=== PATIENT | female | born 1990 | race Caucasian/White ===

== ENCOUNTER → 2018-02-17 | Outpatient (CLI) | payer OTHER ==
[2018-02-17 17:28] LABS: HCG, SERUM QUANTITATIVE < 1.0 MIU/ML
== END ==
LOC: M WUC 16:02
DX: N91.2 Amenorrhea, unspecified (principal)
CPT/HCPCS: 84702

== ENCOUNTER → 2018-07-09 | Outpatient (CLI) | payer OTHER ==
[2018-07-09 18:02] LABS: TOTAL 25(OH) VITAMIN D 18.7 NG/ML (30.0-100.0)
[2018-07-09 18:06] LABS: ESTIMATED AVERAGE GLUCOSE 105 MG/DL (60-110); HEMOGLOBIN A1c 5.3 %
[2018-07-09 18:11] LABS: ALBUMIN 3.6 GM/DL (3.2-5.2); ALBUMIN/GLOBULIN RATIO 1.13 (1.00-1.93); ALKALINE PHOSPHATASE 51 U/L (45-117); ALT/SGPT 26 U/L (12-78); ANION GAP 8 MEQ/L (8-16); AST/SGOT 12 U/L (7-37); BILIRUBIN,TOTAL 0.2 MG/DL (0.2-1.0); BLOOD UREA NITROGEN 10 MG/DL (7-18); CALCIUM LEVEL 8.9 MG/DL (8.5-10.1); CARBON DIOXIDE LEVEL 26 MEQ/L (21-32); CHLORIDE LEVEL 107 MEQ/L (98-107); CHOLESTEROL LEVEL 237 MG/DL (<200); CHOLESTEROL RISK RATIO 5.386 (<5); CREATININE FOR GFR 0.83 MG/DL (0.55-1.30); GLOMERULAR FILTRATION RATE > 60.0 (>60); GLUCOSE, FASTING 101 MG/DL (70-100); HDL CHOLESTEROL 44 MG/DL (>40); LDL CHOLESTEROL 126.2 MG/DL (<100); NON-HDL-C 193 MG/DL; POTASSIUM SERUM 4.6 MEQ/L (3.5-5.1); SODIUM LEVEL 141 MEQ/L (136-145); TOTAL PROTEIN 6.8 GM/DL (6.4-8.2); TRIGLYCERIDES LEVEL 334 MG/DL (<150)
[2018-07-09 18:16] LABS: BASO % 0.6 % (0.0-1.0); EOS # 0.2 10^3/uL (0.0-0.50); HEMATOCRIT 42.4 % (36.0-47.0); HEMOGLOBIN 14.5 g/dl (12.0-15.5); IMMATURE GRANULOCYTE % 0.3 % (0-3.0); LYMPH # 2.2 10^3/uL (1.5-6.5); LYMPH % 33.6 % (24.0-44.0); MEAN CORPUSCULAR HEMOGLOBIN 31.7 pg (27.0-33.0); MEAN CORPUSCULAR HGB CONC 34.2 g/dl (32.0-36.5); MEAN CORPUSCULAR VOLUME 92.8 fl (80.0-96.0); MONO # 0.6 10^3/uL (0.0-0.8); MONO % 9.3 % (0.0-5.0); NEUTROPHILS # 3.4 10^3/uL (1.8-7.7); NEUTROPHILS % 53.2 % (36.0-66.0); PLATELET COUNT, AUTOMATED 385 10^3/uL (150-450); RED BLOOD COUNT 4.57 10^6/uL (4.00-5.40); WHITE BLOOD COUNT 6.4 10^3/uL (4.0-10.0)
[2018-07-13 14:12] LABS: INSULIN LEVEL 48.3 uIU/mL (2.6-24.9)
[2018-07-13 14:12] LABS: LAMOTRIGINE (LAMICTAL) None Detected ug/mL (2.0-20.0)
== END ==
LOC: M SMT 13:26
DX: F31.9 Bipolar disorder, unspecified (principal)
CPT/HCPCS: 83525

== ENCOUNTER 2018-10-24 23:48 | Emergency (ER) | payer MEDICAID, OTHER ==
[~2018-10-24] VITALS: Ht 172.7 cm; Wt 118.2 kg
[2018-10-24] MEDS ORDERED: SYNT125T PO (23:55)
[2018-10-24] MEDS ORDERED: D 50CAP PO (23:55)
[2018-10-24] MEDS ORDERED: LAMO25TA2 PO (23:55)
[2018-10-24] MEDS ORDERED: FLUO20TA28 PO (23:55)
[2018-10-24] MEDS ORDERED: PANT40TA3 PO (23:55)
[2018-10-25 00:58] LABS: BASO % 0.2 % (0.0-1.0); EOS # 0.2 10^3/uL (0.0-0.50); EOS % 2.5 % (0.0-3.0); HEMATOCRIT 40.7 % (36.0-47.0); HEMOGLOBIN 14.1 g/dl (12.0-15.5); LYMPH # 1.8 10^3/uL (1.5-6.5); LYMPH % 22.2 % (24.0-44.0); MEAN CORPUSCULAR HEMOGLOBIN 30.9 pg (27.0-33.0); MEAN CORPUSCULAR HGB CONC 34.6 g/dl (32.0-36.5); MEAN CORPUSCULAR VOLUME 89.3 fl (80.0-96.0); MONO # 0.8 10^3/uL (0.0-0.8); NEUTROPHILS # 5.3 10^3/uL (1.8-7.7); NEUTROPHILS % 64.6 % (36.0-66.0); PLATELET COUNT, AUTOMATED 348 10^3/uL (150-450); RED BLOOD COUNT 4.56 10^6/uL (4.00-5.40); WHITE BLOOD COUNT 8.2 10^3/uL (4.0-10.0)
[2018-10-25 01:11] LABS: ALBUMIN 3.7 GM/DL (3.2-5.2); ALT/SGPT 24 U/L (12-78); BILIRUBIN,TOTAL 0.4 MG/DL (0.2-1.0); BLOOD UREA NITROGEN 8 MG/DL (7-18); CALCIUM LEVEL 8.3 MG/DL (8.5-10.1); CARBON DIOXIDE LEVEL 30 MEQ/L (21-32); CHLORIDE LEVEL 103 MEQ/L (98-107); CREATININE FOR GFR 0.78 MG/DL (0.55-1.30); GLOMERULAR FILTRATION RATE > 60.0 (>60); GLUCOSE, FASTING 88 MG/DL (70-100); LIPASE 89 U/L (73-393); POTASSIUM SERUM 3.5 MEQ/L (3.5-5.1); SODIUM LEVEL 139 MEQ/L (136-145); TOTAL PROTEIN 7.2 GM/DL (6.4-8.2)
[2018-10-25] MEDS ORDERED: ONDANSETRON 4MG/2ML VIAL (J2405) IV ONE (01:15)
[2018-10-25] MEDS ORDERED: NS 1,000 ML IV ONE (01:15)
[2018-10-25] MEDS ORDERED: KETOROLAC 30 MG/ML VIAL (J1885) IV ONE (01:15)
[2018-10-25 01:27] LABS: APPEARANCE, URINE HAZY (CLEAR); BACTERIA, URINE AUTO NEGATIVE (NEGATIVE); BILIRUBIN, URINE AUTO NEGATIVE (NEGATIVE); BLOOD, URINE BLOOD 1+ (NEGATIVE); COLOR, URINE YELLOW (YELLOW); GLUCOSE, URINE (UA) AUTO NEGATIVE (NEGATIVE); KETONE, URINE AUTO NEGATIVE (NEGATIVE); LEUKOCYTE ESTERASE, URINE AUTO NEGATIVE (NEGATIVE); MUCUS, URINE SMALL (NEGATIVE); NITRITE, URINE AUTO NEGATIVE (NEGATIVE); PROTEIN, URINE AUTO NEGATIVE (NEGATIVE); RBC, URINE AUTO 11 /HPF (0-3); SPECIFIC GRAVITY URINE AUTO 1.024 (1.002-1.035); SQUAMOUS EPITHELIAL CELL UR AU 9 /HPF (0-6); UROBILINOGEN, URINE AUTO 0.2 mg/dL (0.0-2.0); WBC, URINE AUTO 2 /HPF (0-3)
[2018-10-25] MEDS ORDERED: CIPR-249 PO (02:34)
[2018-10-25] MEDS ORDERED: ZOFR4TAB14 PO (02:34)
[2018-10-25] MEDS ORDERED: DICY10CA13 PO (02:42)
[2018-10-25] MEDS ORDERED: CIPROFLOXACIN 500 MG TAB PO ONE (02:45)
[2018-10-25 03:00] VITALS: BP 128/74
== END 2018-10-25 03:02 | disposition home or self-care (01) ==
LOC: M ED 23:48
DX: R11.2 Nausea with vomiting, unspecified (principal); R19.5 Other fecal abnormalities; L40.9 Psoriasis, unspecified; F31.9 Bipolar disorder, unspecified; Z79.899 Other long term (current) drug therapy
CPT/HCPCS: 80053; 81001; 83690; 85025; 87507; 96374; 96375; 99284; J1885; J2405

== ENCOUNTER → 2019-01-07 | Outpatient (REF) | payer OTHER, SELFPAY ==
[~2019-01-07] MED LIST: CIPR-249 PO; D 50CAP PO; DICY10CA13 PO; FLUO20TA28 PO; LAMO25TA4 PO; PANT40TA3 PO; SYNT125T PO; ZOFR4TAB14 PO
[2019-01-07 10:49] LABS: BASO % 0.5 % (0.0-1.0); EOS # 0.2 10^3/uL (0.0-0.50); EOS % 2.9 % (0.0-3.0); HEMATOCRIT 42.7 % (36.0-47.0); HEMOGLOBIN 14.2 g/dl (12.0-15.5); LYMPH # 1.8 10^3/uL (1.5-6.5); LYMPH % 22.4 % (24.0-44.0); MEAN CORPUSCULAR HEMOGLOBIN 30.7 pg (27.0-33.0); MEAN CORPUSCULAR HGB CONC 33.3 g/dl (32.0-36.5); MEAN CORPUSCULAR VOLUME 92.4 fl (80.0-96.0); MONO % 12.8 % (0.0-5.0); NEUTROPHILS # 4.8 10^3/uL (1.8-7.7); PLATELET COUNT, AUTOMATED 326 10^3/uL (150-450); RED BLOOD COUNT 4.62 10^6/uL (4.00-5.40); WHITE BLOOD COUNT 7.8 10^3/uL (4.0-10.0)
[2019-01-07 11:24] LABS: HEMOGLOBIN A1c 5.4 %
[2019-01-07 11:32] LABS: ALBUMIN 3.6 GM/DL (3.2-5.2); ALT/SGPT 22 U/L (12-78); BILIRUBIN,TOTAL 0.2 MG/DL (0.2-1.0); BLOOD UREA NITROGEN 10 MG/DL (7-18); CALCIUM LEVEL 8.4 MG/DL (8.5-10.1); CARBON DIOXIDE LEVEL 25 MEQ/L (21-32); CHLORIDE LEVEL 106 MEQ/L (98-107); CHOLESTEROL LEVEL 222 MG/DL (<200); CREATININE FOR GFR 0.76 MG/DL (0.55-1.30); FREE T4 1.08 NG/DL (0.76-1.46); GLOMERULAR FILTRATION RATE > 60.0 (>60); GLUCOSE, FASTING 86 MG/DL (70-100); HDL CHOLESTEROL 37 MG/DL (>40); LDL CHOLESTEROL 130 MG/DL (<100); NON-HDL-C 185 MG/DL; POTASSIUM SERUM 4.5 MEQ/L (3.5-5.1); SODIUM LEVEL 139 MEQ/L (136-145); TRIGLYCERIDES LEVEL 275 MG/DL (<150)
[2019-01-07 11:56] LABS: PTH INTACT 40.1 PG/ML (18.5-88.0); TOTAL 25(OH) VITAMIN D 26.2 NG/ML (30.0-100.0)
== END ==
LOC: M SFHCPLAZ 08:13
PROVIDERS: ATTEND Nurse Practitioner Family
DX: F31.9 Bipolar disorder, unspecified (principal); E03.9 Hypothyroidism, unspecified; E78.5 Hyperlipidemia, unspecified; E55.9 Vitamin D deficiency, unspecified

== ENCOUNTER 2019-01-17 21:32 | Emergency (ER) | payer OTHER ==
[~2019-01-17] VITALS: Ht 172.7 cm; Wt 113.2 kg
[2019-01-17 21:32] VITALS: BP 130/72
[2019-01-17] MEDS ORDERED: IBUP-1022 (21:53)
[2019-01-17] MEDS ORDERED: TYLE500T78 PO (21:53)
== END 2019-01-18 01:50 | disposition left against medical advice (07) ==
LOC: M ED 21:32
DX: R51 Headache (principal); Z53.21 Procedure and treatment not carried out due to patient leaving prior to being seen by health care provider

== ENCOUNTER → 2019-06-27 | Outpatient (REF) | payer OTHER ==
[~2019-06-27] MED LIST changes: +IBUP-1022; +TYLE500T78 PO
[2019-06-27 14:21] LABS: HEPATITIS B SURFACE ANTIBODY NEGATIVE (POSITIVE); HEPATITIS B SURFACE ANTIGEN NEGATIVE (NEGATIVE); HIV 1&2 SCREEN CENTAUR NEGATIVE (NEGATIVE)
== END ==
LOC: M SFHCPLAZ 11:02
PROVIDERS: ATTEND Dermatology
DX: Z51.81 Encounter for therapeutic drug level monitoring (principal); Z79.899 Other long term (current) drug therapy

== ENCOUNTER → 2020-02-13 | Outpatient (CLI) | payer OTHER | LOC: M LABSMTC 10:27 | PROVIDERS: ATTEND Family Medicine | DX: Z11.59 Encounter for screening for other viral diseases (principal); Z20.828 Contact with and (suspected) exposure to other viral communicable diseases ==

== ENCOUNTER 2021-02-18 06:45 | Emergency (ER) | payer OTHER ==
[~2021-02-18] VITALS: Ht 172.7 cm; Wt 115.3 kg
[2021-02-18 06:45] VITALS: BP 133/75
[~2021-02-18 06:45] MED LIST changes: +PANT40TA29 PO; -PANT40TA3 PO
[2021-02-18] MEDS ORDERED: AUGMENTIN 875 MG TAB PO ONE (07:25)
[2021-02-18] MEDS ORDERED: BENZOCAINE 10% 9GM TUBE (ANBESOL) MT ONE (07:25)
[2021-02-18] MEDS ORDERED: IBUP80TA PO (07:26)
[2021-02-18] MEDS ORDERED: AUGM875T28 PO (07:26)
== END 2021-02-18 08:11 | disposition home or self-care (01) ==
LOC: M ED 06:45
DX: K02.9 Dental caries, unspecified (principal); F17.200 Nicotine dependence, unspecified, uncomplicated; Z79.899 Other long term (current) drug therapy

== ENCOUNTER → 2021-05-15 | Outpatient (CLI) | payer OTHER ==
[~2021-05-15] MED LIST changes: +AUGM875T28 PO; +IBUP80TA PO
[2021-05-15 15:40] LABS: BASO % 0.5 % (0.0-1.0); EOS # 0.3 10^3/uL (0.0-0.5); EOS % 3.6 % (0.0-3.0); HEMATOCRIT 44.1 % (36.0-47.0); HEMOGLOBIN 14.9 g/dl (12.0-15.5); LYMPH # 2.8 10^3/uL (1.5-5.0); LYMPH % 32.9 % (24.0-44.0); MEAN CORPUSCULAR HEMOGLOBIN 31.9 pg (27.0-33.0); MEAN CORPUSCULAR HGB CONC 33.8 g/dl (32.0-36.5); MEAN CORPUSCULAR VOLUME 94.4 fl (80.0-96.0); MONO # 0.8 10^3/uL (0.0-0.8); MONO % 9.6 % (2.0-8.0); NEUTROPHILS # 4.5 10^3/uL (1.5-8.5); PLATELET COUNT, AUTOMATED 395 10^3/uL (150-450); RED BLOOD COUNT 4.67 10^6/uL (4.00-5.40); WHITE BLOOD COUNT 8.5 10^3/uL (4.0-10.0)
[2021-05-15 15:52] LABS: ALBUMIN 3.7 GM/DL (3.2-5.2); ALT/SGPT 28 U/L (12-78); BILIRUBIN,TOTAL 0.3 MG/DL (0.2-1.0); BLOOD UREA NITROGEN 9 MG/DL (7-18); CALCIUM LEVEL 9.4 MG/DL (8.5-10.1); CARBON DIOXIDE LEVEL 27 MEQ/L (21-32); CHLORIDE LEVEL 109 MEQ/L (98-107); CHOLESTEROL LEVEL 180 MG/DL (<200); CHOLESTEROL RISK RATIO 4.864 (<5); CREATININE FOR GFR 0.78 MG/DL (0.55-1.30); FREE T4 1.08 NG/DL (0.76-1.46); GLOMERULAR FILTRATION RATE > 60.0 (>60); GLUCOSE, FASTING 105 MG/DL (70-100); HDL CHOLESTEROL 37 MG/DL (>40); LDL CHOLESTEROL 88 MG/DL (<100); NON-HDL-C 143 MG/DL; POTASSIUM SERUM 4.6 MEQ/L (3.5-5.1); SODIUM LEVEL 143 MEQ/L (136-145); TOTAL PROTEIN 6.8 GM/DL (6.4-8.2); TRIGLYCERIDES LEVEL 276 MG/DL (<150)
[2021-05-15 15:54] LABS: TOTAL 25(OH) VITAMIN D 17.6 NG/ML (30.0-100.0)
[2021-05-15 16:06] LABS: HEMOGLOBIN A1c 5.5 %
== END ==
LOC: M PLALAB 13:32
PROVIDERS: ATTEND Nurse Practitioner Family
DX: E03.9 Hypothyroidism, unspecified (principal)

== ENCOUNTER 2021-12-19 06:24 | Emergency (ER) | payer OTHER ==
[~2021-12-19] VITALS: Ht 170.2 cm; Wt 115.7 kg
[2021-12-19 07:55] LABS: BASO % 0.3 % (0.0-1.0); EOS # 0.2 10^3/uL (0.0-0.5); EOS % 1.3 % (0.0-3.0); HEMATOCRIT 41.1 % (36.0-47.0); HEMOGLOBIN 13.7 g/dl (12.0-15.5); LYMPH # 2.2 10^3/uL (1.5-5.0); LYMPH % 14.3 % (24.0-44.0); MEAN CORPUSCULAR HEMOGLOBIN 31.5 pg (27.0-33.0); MEAN CORPUSCULAR HGB CONC 33.3 g/dl (32.0-36.5); MEAN CORPUSCULAR VOLUME 94.5 fl (80.0-96.0); MONO # 1.2 10^3/uL (0.0-0.8); MONO % 7.5 % (2.0-8.0); NEUTROPHILS # 11.9 10^3/uL (1.5-8.5); NEUTROPHILS % 76.2 % (36.0-66.0); PLATELET COUNT, AUTOMATED 352 10^3/uL (150-450); RED BLOOD COUNT 4.35 10^6/uL (4.00-5.40); WHITE BLOOD COUNT 15.6 10^3/uL (4.0-10.0)
[2021-12-19 08:17] LABS: ALBUMIN 3.5 GM/DL (3.2-5.2); ALT/SGPT 25 U/L (12-78); BILIRUBIN,DIRECT < 0.1 MG/DL (0.0-0.2); BILIRUBIN,TOTAL 0.3 MG/DL (0.2-1.0); BLOOD UREA NITROGEN 11 MG/DL (7-18); CALCIUM LEVEL 8.7 MG/DL (8.5-10.1); CARBON DIOXIDE LEVEL 24 MEQ/L (21-32); CHLORIDE LEVEL 107 MEQ/L (98-107); CREATININE FOR GFR 0.91 MG/DL (0.55-1.30); GLOMERULAR FILTRATION RATE > 60.0 (>60); GLUCOSE, FASTING 114 MG/DL (70-100); LIPASE 113 U/L (73-393); POTASSIUM SERUM 4.3 MEQ/L (3.5-5.1); SODIUM LEVEL 140 MEQ/L (136-145); TOTAL PROTEIN 6.6 GM/DL (6.4-8.2)
[2021-12-19] MEDS ORDERED: NS 1,000 ML IV ONE (08:25)
[2021-12-19] MEDS ORDERED: cefTRIAXone SOD 1 GM in D5W MINI-BAG PLUS 50 ML IV ONE (08:25)
[2021-12-19] MEDS ORDERED: FLOM0.4C39 PO (10:08)
[2021-12-19] MEDS ORDERED: CEPH500C PO (10:08)
[2021-12-19 10:38] VITALS: BP 103/66
== END 2021-12-19 10:44 | disposition home or self-care (01) ==
LOC: M ED 06:24
DX: N39.0 Urinary tract infection, site not specified (principal); N83.299 Other ovarian cyst, unspecified side; N20.0 Calculus of kidney; N13.1 Hydronephrosis with ureteral stricture, not elsewhere classified; K76.0 Fatty (change of) liver, not elsewhere classified; K80.20 Calculus of gallbladder without cholecystitis without obstruction; K29.51 Unspecified chronic gastritis with bleeding; K57.90 Diverticulosis of intestine, part unspecified, without perforation or abscess without bleeding; M51.37 Other intervertebral disc degeneration, lumbosacral region; K42.9 Umbilical hernia without obstruction or gangrene; Z79.899 Other long term (current) drug therapy
CPT/HCPCS: 74176; 80048; 80076; 81001; 83690; 84702; 85025; 87088; 87186; 96360; 96361; 99284; J0696

== ENCOUNTER → 2021-12-31 | Outpatient (CLI) | payer OTHER ==
[~2021-12-31] MED LIST changes: +CEPH500C PO; +FLOM0.4C39 PO
[2021-12-31 11:21] LABS: BASO # 0.1 10^3/uL (0.0-0.2); BASO % 0.7 % (0.0-1.0); EOS # 0.4 10^3/uL (0.0-0.5); EOS % 3.6 % (0.0-3.0); HEMATOCRIT 45.5 % (36.0-47.0); LYMPH # 3.3 10^3/uL (1.5-5.0); LYMPH % 29.4 % (24.0-44.0); MEAN CORPUSCULAR HEMOGLOBIN 31.5 pg (27.0-33.0); MEAN CORPUSCULAR VOLUME 95.6 fl (80.0-96.0); MONO % 9.2 % (2.0-8.0); NEUTROPHILS # 6.3 10^3/uL (1.5-8.5); NEUTROPHILS % 56.8 % (36.0-66.0); PLATELET COUNT, AUTOMATED 447 10^3/uL (150-450); RED BLOOD COUNT 4.76 10^6/uL (4.00-5.40); WHITE BLOOD COUNT 11.1 10^3/uL (4.0-10.0)
[2021-12-31 12:16] LABS: CHOLESTEROL RISK RATIO 4.486 (<5); FREE T4 1.09 NG/DL (0.76-1.46); THYROID STIMULATING HORMONE 1.61 uIU/ML (0.358-3.740); TOTAL 25(OH) VITAMIN D 14.3 NG/ML (30.0-100.0)
[2021-12-31 13:25] LABS: HEMOGLOBIN A1c 5.8 %
== END ==
LOC: M PLALAB 09:08
PROVIDERS: ATTEND Nurse Practitioner Family
DX: N39.0 Urinary tract infection, site not specified (principal); E55.9 Vitamin D deficiency, unspecified; E03.9 Hypothyroidism, unspecified; E78.5 Hyperlipidemia, unspecified; R73.01 Impaired fasting glucose

== ENCOUNTER 2022-12-10 14:21 | Emergency (ER) | payer OTHER ==
[~2022-12-10] VITALS: Ht 172.7 cm; Wt 97.7 kg
[2022-12-10 14:22] VITALS: BP 128/74
[2022-12-10] MEDS ORDERED: OMEP40CA5 (14:36)
[2022-12-10] MEDS ORDERED: ATOR1TAB21 (14:36)
== END 2022-12-10 18:43 | disposition left against medical advice (07) ==
LOC: M ED 14:21
DX: Z53.21 Procedure and treatment not carried out due to patient leaving prior to being seen by health care provider (principal)

== ENCOUNTER → 2023-12-23 | Outpatient (CLI) | payer OTHER ==
[~2023-12-23] MED LIST changes: +ATOR1TAB21; +DICY-61 PO; -DICY10CA13 PO; +OMEP40CA5
[2023-12-23 15:36] LABS: BASO # 0.1 10^3/uL (0.0-0.2); BASO % 0.6 % (0.0-1.0); EOS # 0.4 10^3/uL (0.0-0.5); EOS % 4.4 % (0.0-3.0); HEMATOCRIT 41.3 % (36.0-47.0); LYMPH # 2.1 10^3/uL (1.5-5.0); LYMPH % 25.8 % (24.0-44.0); MEAN CORPUSCULAR HEMOGLOBIN 32.1 pg (27.0-33.0); MEAN CORPUSCULAR HGB CONC 33.9 g/dl (32.0-36.5); MEAN CORPUSCULAR VOLUME 94.7 fl (80.0-96.0); MONO # 0.7 10^3/uL (0.0-0.8); MONO % 8.3 % (2.0-8.0); NEUTROPHILS % 60.7 % (36.0-66.0); PLATELET COUNT, AUTOMATED 356 10^3/uL (150-450); RED BLOOD COUNT 4.36 10^6/uL (4.00-5.40); WHITE BLOOD COUNT 8.2 10^3/uL (4.0-10.0)
[2023-12-23 15:57] LABS: HEMOGLOBIN A1c 4.9 % (4.0-6.0)
[2023-12-23 16:08] LABS: ALBUMIN 3.9 G/DL (3.2-5.2); ALKALINE PHOSPHATASE 41 U/L (46-116); ALT/SGPT 26 U/L (7.0-40); AST/SGOT 15 U/L (<34); BILIRUBIN,TOTAL 0.6 MG/DL (0.3-1.2); BLOOD UREA NITROGEN 10 MG/DL (9-23); CALCIUM LEVEL 8.8 MG/DL (8.5-10.1); CARBON DIOXIDE LEVEL 29 MMOL/L (20-31); CHLORIDE LEVEL 107 MMOL/L (98-107); CHOLESTEROL LEVEL 199 MG/DL (<200); CHOLESTEROL RISK RATIO 3.01 (<5); CREATININE FOR GFR 0.76 MG/DL (0.55-1.30); GLOMERULAR FILTRATION RATE > 60.0 (>60); GLUCOSE, FASTING 89 MG/DL (60-100); POTASSIUM SERUM 4.7 MMOL/L (3.5-5.1); SODIUM LEVEL 139 MMOL/L (136-145); TOTAL PROTEIN 6.6 G/DL (5.7-8.2); TRIGLYCERIDES LEVEL 90 MG/DL (<150)
[2023-12-23 16:10] LABS: FREE T4 1.06 NG/DL (0.89-1.76)
[2023-12-23 16:11] LABS: THYROID STIMULATING HORMONE 2.723 uIU/ML (0.55-4.78); TOTAL 25(OH) VITAMIN D 17.1 NG/ML (20.0-100.0)
== END ==
LOC: M PLALAB 13:43
PROVIDERS: ATTEND Nurse Practitioner Family
DX: E03.9 Hypothyroidism, unspecified (principal); M54.50 Low back pain, unspecified; E55.9 Vitamin D deficiency, unspecified; E78.5 Hyperlipidemia, unspecified; R73.01 Impaired fasting glucose

== ENCOUNTER → 2024-04-15 | Outpatient (CLI) | payer OTHER | LOC: M PLAIMG 14:46 | PROVIDERS: ATTEND Nurse Practitioner Family | DX: M47.816 Spondylosis without myelopathy or radiculopathy, lumbar region (principal); M51.36 Other intervertebral disc degeneration, lumbar region ==